=== PATIENT | female | born 1955 | race Caucasian/White ===

== ENCOUNTER → 2018-09-29 | Outpatient (CLI) | payer OTHER | LOC: M.RAD 10:23 | DX: M25.461 Effusion, right knee (principal); J18.9 Pneumonia, unspecified organism; I34.1 Nonrheumatic mitral (valve) prolapse; R09.89 Other specified symptoms and signs involving the circulatory and respiratory systems; R05 Cough ==

== ENCOUNTER → 2019-02-22 | Outpatient (CLI) | payer OTHER | LOC: M.RAD 12:03 | DX: M25.561 Pain in right knee (principal) ==

== ENCOUNTER → 2019-03-05 | Outpatient (CLI) | payer OTHER | LOC: M.MRI 02-23 15:10 | DX: S83.241A Other tear of medial meniscus, current injury, right knee, initial encounter (principal); E04.1 Nontoxic single thyroid nodule; Z88.8 Allergy status to other drugs, medicaments and biological substances; Z80.42 Family history of malignant neoplasm of prostate; X58.XXXA Exposure to other specified factors, initial encounter; Y93.89 Activity, other specified; Y92.89 Other specified places as the place of occurrence of the external cause; Y99.8 Other external cause status ==

== ENCOUNTER 2019-11-09 14:26 | Emergency (ER) | payer OTHER ==
[~2019-11-09] VITALS: Ht 170.2 cm; Wt 105.2 kg
[2019-11-09] MEDS ORDERED: NORCO 5-325 TA1 EAC1 PO (15:37)
[2019-11-09 15:48] VITALS: BP 142/79
== END 2019-11-09 15:50 | disposition home or self-care (01) ==
LOC: M.ERS 14:26
DX: S93.491A Sprain of other ligament of right ankle, initial encounter (principal); Z88.8 Allergy status to other drugs, medicaments and biological substances; W01.0XXA Fall on same level from slipping, tripping and stumbling without subsequent striking against object, initial encounter; Y92.89 Other specified places as the place of occurrence of the external cause; Y93.89 Activity, other specified; Y99.8 Other external cause status